=== PATIENT | female | born 1945 | race Caucasian/White ===

== ENCOUNTER 2016-10-28 13:30 | Day surgery (SDC) | payer MEDICARE, BC ==
--- NOTE | ~2016-10-28 | OP ---
Record Of Operation [facility] [address] [place] [address] NAME: HARDEEP GALLO : 41 STATUS : [facility]#: [id number] AGE: 71 ADM/REG DATE : 10/28/16 MR#: [id number] REPORT SERV DATE: 10/28/16 DICTATED BY: ANGEL URIARTE DATE: 10/28/16 REPORT STATUS : Draft TRANSCRIBED BY: MODL DATE: 10/28/16 DATE OF PROCEDURE: 10/28/2016 PREOPERATIVE DIAGNOSIS: Stiff right total knee. POSTOPERATIVE DIAGNOSIS: Stiff right total knee. PROCEDURE: Right knee closed manipulation under anesthesia. SURGEON: Joseph Uriarte M.D. SIGN MAINTENANCE: See chart. DESCRIPTION OF PROCEDURE: The patient was taken to the recovery room with IV sedation per the anesthesiologist. General pressure was applied proximal to the knee, brought back in flexion, anterior failed to release as she was approximately 85 degrees, back to about 130 degrees. She was wrapped with an Jonatan wrap, awakened, discharged home without incident. COMPLICATIONS: None. SPECIMENS: None. WTB/GROVER Joseph Uriarte M.D. / [id number] CC: Hazel Padron M.D.
[~2016-10-28 13:30] MED LIST: BENICAR HCT1 TA2 PO; COUMADIN4 MG PO; DURICEF PO; FLONASE NAS; MIRALAXPKT PO; NEXIUM40 PO; NORCO1 TA2 PO; SINGULAIR1 PO; SYN125 PO; ZOCOR40 PO; ZYRTEC ALLGY10 MG PO
[2016-10-28 14:28] LABS: HEMATOCRIT 36.6 % (36.0-48.0); HEMOGLOBIN 11.7 g/dL (12.0-16.0)
[2016-10-28 14:35] LABS: INTERNATIONAL NORMAL RATI 2.2 UNITS (-); PROTIME (NOT ORD) 23.8 SEC (12.0-14.5)
[2016-10-28 14:37] LABS: BUN (BLOOD UREA NITROGEN) 17 MG/DL (6-23); CHLORIDE, SERUM 101 MMOL/L (96-112); CO2 (CARBON DIOXIDE) 27 MMOL/L (24-34); CREATININE 0.95 MG/DL (0.55-1.02); GFR AFRICAN AMERICAN 69 ML/MIN (>=60); GFR NON AFRICAN AMERICAN 59 ML/MIN (>=60); GLUCOSE, SERUM 98 MG/DL (60-99); POTASSIUM, SERUM 3.2 MMOL/L (3.5-5.3); SODIUM, SERUM 139 MMOL/L (135-148)
== END 2016-10-28 17:31 | disposition home or self-care (01) ==
LOC: SDC 13:30
PROVIDERS: Anesthesiology; Specialist
PROC: 0SSCXZZ Reposition Right Knee Joint, External Approach (ICD-10-PCS; principal; 2016-10-28 16:00)
DX: M25.661 Stiffness of right knee, not elsewhere classified (principal); M24.661 Ankylosis, right knee; I10 Essential (primary) hypertension; E78.00 Pure hypercholesterolemia, unspecified; J45.909 Unspecified asthma, uncomplicated; E03.9 Hypothyroidism, unspecified; E78.5 Hyperlipidemia, unspecified; Z79.891 Long term (current) use of opiate analgesic; Z79.899 Other long term (current) drug therapy; Z88.2 Allergy status to sulfonamides; Z98.890 Other specified postprocedural states; Z90.710 Acquired absence of both cervix and uterus; Z87.442 Personal history of urinary calculi; Z82.49 Family history of ischemic heart disease and other diseases of the circulatory system; Z91.040 Latex allergy status; Z79.01 Long term (current) use of anticoagulants
CPT/HCPCS: 80048; 85014; 85018; 85610; A9270-GY; J1170; J3010